=== PATIENT | female | born 1995 ===

== ENCOUNTER 2019-06-04 12:00 | Emergency (ER) | payer SELFPAY ==
--- NOTE | 2019-06-04 14:13 | UC ---
Abdominal Pain Female HPI - HPI Summary HPI Summary: Ms. Randall presents with a concern that she has had body aches for several days. She's also had some low abdominal pain in the suprapubic area and right lower quadrant that she notices primarily when she is running. She is on the [employer]. She's had no nausea and has had a normal appetite. She has no dysuria or vaginal discharge. Last Tuesday she felt some vaginal itching but has not had any since. She has been here from [facility] for 1 year and has not been sexually active for that year. She's been moving her bowels normally. - History of Current Complaint Chief Complaint: UCAbdominalPain Stated Complaint: FEVER/BODY ACHES Time Seen by Provider: 06/04/19 12:29 Hx Obtained From: Patient Hx Last Menstrual Period: 03/28/19 ?: No Onset/Duration: Gradual Onset Timing: Constant Severity Initially: Mild Severity Currently: Mild - She tells me that she has no pain currently when she is in the room here. Pain Intensity: 3 Location: Discrete At: RLQ, Suprapubic Radiates: No Character: Dull Aggravating Factor(s): Movement - Especially running. Alleviating Factor(s): Nothing Associated Signs and Symptoms: Positive: Negative Allergies/Adverse Reactions: Allergies Allergy/AdvReac Type Severity Reaction Status Date / Time No Known Allergies Allergy Verified 06/04/19 12:18 Home Medications: Home Medications Acetaminophen 1 tab PO ONCE PRN 06/04/19 [History Confirmed 06/04/19] Ibuprofen 1 tab PO ONCE PRN 06/04/19 [History Confirmed 06/04/19] PMH/Surg Hx/FS Hx/Imm Hx Previously Healthy: Yes - Surgical History Surgical History: None - Social History Alcohol Use: None Substance Use Type: None Smoking Status (MU): Never Smoked Tobacco Review of Systems All Other Systems Reviewed And Are Negative: Yes Constitutional: Positive: Negative Skin: Positive: Negative Gastrointestinal: Positive: Abdominal Pain. Negative: Vomiting, Diarrhea, Nausea Genitourinary: Negative: Dysuria, Hematuria, Frequency, Urgency Musculoskeletal: Positive: Arthralgia Physical Exam - Summary Physical Exam Summary: She is nontoxic in appearance with stable vital signs. Triage Information Reviewed: Yes Appearance: Well-Appearing, No Pain Distress Vital Signs: Initial Vital Signs Temp 99.1 F 06/04/19 12:12 Pulse 84 06/04/19 12:12 Resp 18 06/04/19 12:12 BP 113/69 06/04/19 12:12 Pulse Ox 99 06/04/19 12:12 Vital Signs Reviewed: Yes ENT Exam: Normal Neck exam: Normal Respiratory Exam: Normal Cardiovascular Exam: Normal Abdominal Exam: Normal - There was perhaps slight tenderness in the right lower quadrant. Bowel Sounds: Positive: Present Musculoskeletal Exam: Normal Neurological Exam: Normal Psychological Exam: Normal Skin Exam: Normal Diagnostics - Radiology Appendix U/S Radiology Interpretation Completed By: Radiologist Summary of Radiographic Findings: Appendix not visualized Transvaginal U/S Radiology Interpretation Completed By: Radiologist Summary of Radiographic Findings: A small amount of free physiological fluid and some follicular cysts. Left worse than the right Abd Pain Female Course/Dx - Course Course Of Treatment: I'm not certain of the etiology of her pain. I offered a pelvic exam here and we do have a female provider on staff today but she guarantees me that she has not had any sexual activity for a year. I offered to have her go over to the emergency department for further evaluation or for us to draw blood here which results will be available tomorrow. She does not want to have her blood drawn. I'm going to give her abdominal pain instructions and encourage her to follow up if she does not improve. - Differential Dx/Diagnosis Provider Diagnosis: Abdominal pain Discharge - Sign-Out/Discharge Documenting (check all that apply): Patient Departure All imaging exams completed and their final reports reviewed: Yes - Discharge Plan Condition: Stable Disposition: HOME Patient Education Materials: Abdominal Pain (ED) Referrals: No Primary Care Phys,NOPCP [Primary Care Provider] - Carlyn Hernandes MD [Medical Doctor] - - Billing Disposition and Condition Condition: STABLE Disposition: Home
[2019-06-04 19:13] LABS: ABS Eosinophils 0.1 10^3/ul (0-0.6); ABS Lymphocytes 2.4 10^3/ul (1.0-4.8); ABS Monocytes 0.6 10^3/ul (0-0.8); ABS Neutrophils 2.4 10^3/ul (1.5-7.7); Eosinophil % 1.7 %; Hematocrit 44 % (35-47); Hemoglobin 14.5 g/dL (12.0-16.0); Lymphocyte % 42.3 %; Mean Corpuscular HGB Conc 33 g/dL (31-36); Mean Corpuscular Hemoglobin 26 pg (27-31); Mean Corpuscular Volume 81 fL (80-97); Mean Platelet Volume 9.4 fL (7.4-10.4); Nucleated Red Blood Cells % 0.2; Platelet Count 228 10^3/uL (150-450); Red Blood Count 5.47 10^6 /uL (3.70-4.87); Red Cell Distribution Width 14 % (10-15); White Blood Count 5.6 10^3/uL (3.5-10.8)
[2019-06-04 19:18] LABS: Albumin 4.7 g/dL (3.2-5.2); Calcium 9.9 mg/dL (8.6-10.3); Total Bilirubin 0.8 mg/dL (0.2-1.0)
[2019-06-04 19:24] LABS: Albumin/Globulin Ratio 1.5 (1-3); BUN/Creatinine Ratio 10.4 (8-20); EGFR African American 114.5 (>60); EGFR Non-African American 94.6 (>60); Globulin 3.2 g/dL (2-4); Total Protein 7.9 g/dL (6.4-8.9)
== END 2019-06-04 15:11 | disposition home or self-care (01) ==
LOC: UCEAST 12:00
DX: R10.9 Unspecified abdominal pain (principal); R10.32 Left lower quadrant pain
CPT/HCPCS: 36415; 76705; 76830; 80053; 81003; 83690; 84702; 85025; 99201; G0463